=== PATIENT | female | born 1985 | race Caucasian/White ===

== ENCOUNTER 2022-11-04 06:54 | Emergency (ER) | payer OTHER ==
[2022-11-04 08:03] LABS: BASOPHILS ABSOLUTE AUTO 0.01 K/mm3 (0.01-0.08); BASOPHILS PERCENT AUTO 0.1 % (0.1-1.2); EOSINOPHILS ABSOLUTE AUTO 0.12 K/mm3 (0.04-0.36); EOSINOPHILS PERCENT AUTO 1.4 (0.7-5.8); HEMATOCRIT 35.3 % (34.1-44.9); HEMOGLOBIN 11.8 gm/dl (11.2-15.7); IMMATURE GRAN ABSOLUTE AUTO 0.02 K/mm3 (0.00-0.10); IMMATURE GRAN PERCENT AUTO 0.2 % (<=1.0); LYMPHOCYTES ABSOLUTE AUTO 0.74 K/mm3 (1.18-3.74); LYMPHOCYTES PERCENT AUTO 8.5 % (19.3-51.7); MEAN CORPUSCULAR HEMOGLOBIN 29.1 pg (25.6-32.2); MEAN CORPUSCULAR HGB CONC 33.4 g/dl (32.2-35.5); MEAN CORPUSCULAR VOLUME 87.2 fl (79.4-94.8); MEAN PLATELET VOLUME 11.4 fl (9.4-12.3); MONOCYTES ABSOLUTE AUTO 0.45 K/mm3 (0.24-0.36); MONOCYTES PERCENT AUTO 5.2 % (4.7-12.5); NEUTROPHILS ABSOLUTE AUTO 7.35 K/mm3 (1.56-6.13); NEUTROPHILS PERCENT AUTO 84.6 % (34.0-71.1); PLATELET COUNT,PLT 208 K/mm3 (182-369); RED BLOOD CELL COUNT 4.05 M/mm3 (3.98-5.22); WHITE BLOOD CELL COUNT,WBC 8.69 K/mm3 (3.98-10.04)
== END 2022-11-04 12:54 | disposition home or self-care (01) ==
LOC: JD.ED 06:54
DX: O20.9 Hemorrhage in early pregnancy, unspecified (principal); O41.02 Oligohydramnios, second trimester; Z91.010 Allergy to peanuts; Z3A.17 17 weeks gestation of pregnancy
CPT/HCPCS: 36415; 76815; 76815-26; 84112; 84702; 85025; 86900; 86901; 99283; 99284

== ENCOUNTER 2024-11-08 17:06 | Inpatient (IN) | payer OTHER ==
[2024-11-08 18:09] LABS: BASOPHILS ABSOLUTE AUTO 0.0 K/mm3 (0.0-0.2); BASOPHILS PERCENT AUTO 0.4 % (0.0-1.0); EOSINOPHILS ABSOLUTE AUTO 0.1 K/mm3 (0.0-0.4); EOSINOPHILS PERCENT AUTO 1.4 % (0.0-6.0); IMMATURE GRAN ABSOLUTE AUTO 0.06 K/mm3 (0.00-0.05); IMMATURE GRAN PERCENT AUTO 0.8 % (0.0-0.4); LYMPHOCYTES ABSOLUTE AUTO 0.9 K/mm3 (1.0-4.8); LYMPHOCYTES PERCENT AUTO 12.6 % (24.0-44.0); MEAN PLATELET VOLUME 11.9 fl (9.4-12.3); MONOCYTES ABSOLUTE AUTO 0.5 K/mm3 (0.0-0.8); MONOCYTES PERCENT AUTO 7.3 % (0.0-8.0); NEUTROPHILS ABSOLUTE AUTO 5.7 K/mm3 (1.8-7.7); NEUTROPHILS PERCENT AUTO 77.5 % (41.0-71.0); NRBC ABSOLUTE 0.00 (0.00-0.02); NRBC PERCENT 0.0 % (0.0-0.2); PLATELET COUNT,PLT 186 K/mm3 (150-400); RED BLOOD CELL COUNT 4.23 M/mm3 (4.10-5.30); WHITE BLOOD CELL COUNT,WBC 7.30 K/mm3 (3.9-11.3)
[2024-11-08 18:42] LABS: CREATININE,URINE RAND 155.7 mg/dL (30.0-125.0); PROTEIN CREATININE RATIO,URINE 159.3 mg/g (0-149); PROTEIN,URINE RANDOM 24.8 mg/dL (0.0-11.8)
[2024-11-08 18:45] LABS: ALANINE AMINOTRANSFERASE,ALT 17.0 U/L (14-59); ASPARTATE AMNIOTRANSFERASE,AST 19.0 U/L (15-37); BLOOD UREA NITROGEN,BUN 11.0 mg/dL (7-18); CREATININE 0.7 mg/dL (0.55-1.02); EST CRCL DRUG DOSING (CG) 120.6 mL/min; ESTIMATED GFR 113.0 mL/min (>60); LACTATE DEHYDROGENASE,LDH 170.0 U/L (81-234)
[2024-11-08] MEDS ORDERED: Nalbuphine 10 MG/1 ML Vial IVPUSH PRN (20:42)
[2024-11-08] MEDS ORDERED: Sodium Chloride 0.9% 10 ML Syringe FLUSH PRN (20:42)
[2024-11-08] MEDS ORDERED: Oxytocin/0.9 % Sodium Chloride 30 UNIT/500 ML BAG IV SCH (20:45)
[2024-11-08] MEDS: Misoprostol 25 MCG (1/4 of 100 MCG) Tab VAG PRN (21:20)
[2024-11-08] MEDS: Sodium Chloride 0.9% 10 ML Syringe FLUSH SCH (21:27)
[2024-11-09] MEDS ORDERED: ePHEDrine 50 MG/ML SDV IVPUSH PRN (01:13)
[2024-11-09] MEDS ORDERED: diphenhydrAMINE 50 MG/ML SDV IVPUSH PRN (01:13)
[2024-11-09] MEDS ORDERED: fentaNYL 100 MCG/2 ML SDV EPIDUR PRN (01:13)
[2024-11-09] MEDS: Lactated Ringers 1,000 ML IV SCH (01:52)
[2024-11-09] MEDS: Oxytocin/0.9 % Sodium Chloride 30 UNIT/500 ML BAG IV SCH (01:56)
[2024-11-09] MEDS: Bupivacaine/fentaNYL/NS 100 ML Bag EPIDUR PRN (06:17)
[2024-11-09] MEDS: Ondansetron 4 MG/2 ML SDV IVPUSH PRN (07:10)
[2024-11-09] MEDS ORDERED: Magnesium Hydroxide 400 MG/5 ML Susp 30 ML Cup PO PRN (17:40)
[2024-11-09] MEDS ORDERED: Oxytocin/0.9 % Sodium Chloride 30 UNIT/500 ML BAG IV SCH (17:40)
[2024-11-09] MEDS: Witch Hazel Medicated Pads 40/Jar TOP PRN (19:35)
[2024-11-09] MEDS: Benzocaine/Menthol 20%-0.5% Spray 78 GM Cannister TOP PRN (19:35)
[2024-11-10] MEDS: Prenatal Multivitamin with Calcium/Folic Acid/Iron Tab PO SCH (09:10)
[2024-11-10] MEDS: Insulin Glargine,Human Rec. Analog 100 Units/ML 3 ML Pen SUBCUT SCH (09:15)
== END 2024-11-11 11:05 | disposition home or self-care (01) | DRG 807 ==
LOC: JD.OBCHECK 17:06 → JD.OB 17:35 → JD.OBCHECK 23:45 → OBSVTOIN 11-09 14:53 → JD.MS 11-09 14:54 → JD.OB 11-09 20:04
PROVIDERS: ADMIT Obstetrics & Gynecology; ATTEND Obstetrics & Gynecology
PROC: 10E0XZZ Delivery of Products of Conception, External Approach (ICD-10-PCS; principal; 2024-11-09)
PROC: 0KQM0ZZ Repair Perineum Muscle, Open Approach (ICD-10-PCS; 2024-11-09)
PROC: 10907ZC Drainage of Amniotic Fluid, Therapeutic from Products of Conception, Via Natural or Artificial Opening (ICD-10-PCS; 2024-11-09)
PROC: 3E0DXGC Introduction of Other Therapeutic Substance into Mouth and Pharynx, External Approach (ICD-10-PCS; 2024-11-09)
PROC: 0U7C7DJ Dilation of Cervix with Intraluminal Device, Temporary, Via Natural or Artificial Opening (ICD-10-PCS; 2024-11-09)
PROC: 10H07YZ Insertion of Other Device into Products of Conception, Via Natural or Artificial Opening (ICD-10-PCS; 2024-11-09)
PROC: 3E0R3BZ Introduction of Anesthetic Agent into Spinal Canal, Percutaneous Approach (ICD-10-PCS; 2024-11-09)
PROC: 00HU33Z Insertion of Infusion Device into Spinal Canal, Percutaneous Approach (ICD-10-PCS; 2024-11-09)
DX: O13.4 Gestational [pregnancy-induced] hypertension without significant proteinuria, complicating childbirth (principal); Z37.0 Single live birth; Z3A.37 37 weeks gestation of pregnancy; O99.214 Obesity complicating childbirth; O24.414 Gestational diabetes mellitus in pregnancy, insulin controlled; O26.893 Other specified pregnancy related conditions, third trimester; O99.284 Endocrine, nutritional and metabolic diseases complicating childbirth; E28.2 Polycystic ovarian syndrome; O70.1 Second degree perineal laceration during delivery; O76 Abnormality in fetal heart rate and rhythm complicating labor and delivery
CPT/HCPCS: 36415; 51702; 59025; 59409; 82565; 82570; 82947; 83615; 84156; 84450; 84460; 84520; 84550; 85025; 86592; A9270-GY; C1726; J2405; J3490; J7120; J7999